=== PATIENT | male | born 1955 | race Caucasian/White ===

== ENCOUNTER 2016-08-19 09:59 | Emergency (ER) | payer OTHER ==
[~2016-08-19] VITALS: Ht 182.9 cm; Wt 90.7 kg
[2016-08-19] MEDS ORDERED: ASPI1TAB PO (10:10)
[2016-08-19] MEDS ORDERED: METF500T PO (10:10)
[2016-08-19] MEDS ORDERED: RAMI5CA PO (10:10)
[2016-08-19] MEDS ORDERED: SIMV40TA2 PO (10:10)
[2016-08-19] MEDS ORDERED: GLIM2TAB PO (10:10)
[2016-08-19] MEDS ORDERED: INSULANT SUBQ (10:10)
[2016-08-19] MEDS ORDERED: NOVOINJ3 (10:10)
[2016-08-19] MEDS ORDERED: MORPHINE 4 MG/ML 1ML SYRINGE IV ONE (11:15)
[2016-08-19] MEDS ORDERED: ONDANSETRON 4MG/2ML VIAL (J2405) IV ONE (11:15)
[2016-08-19] MEDS ORDERED: NS 500 ML IV ONE (11:15)
[2016-08-19 11:39] LABS: BASO % 0.2 % (0.0-1.0); EOS # 0.1 K/mm3 (0.0-0.50); EOS % 0.6 % (0.0-3.0); LARGE UNSTAINED CELL # 0.1 K/mm3 (0.0-0.4); LARGE UNSTAINED CELL % 0.4 % (0.0-4.0); LYMPH # 1.2 K/mm3 (1.5-4.5); LYMPH % 8.5 % (24.0-44.0); MEAN CORPUSCULAR HEMOGLOBIN 30.8 pg (27.0-33.0); MEAN CORPUSCULAR HGB CONC 32.9 g/dl (32.0-36.5); MEAN CORPUSCULAR VOLUME 93.4 fl (80.0-96.0); MONO # 0.5 K/mm3 (0.0-0.8); MONO % 3.6 % (0.0-5.0); NEUTROPHILS # 12.4 K/mm3 (1.8-7.7); NEUTROPHILS % 86.6 % (36.0-66.0); PLATELET COUNT, AUTOMATED 314 k/mm3 (150-450); RED CELL DISTRIBUTION WIDTH 13.9 % (11.5-14.5); WHITE BLOOD COUNT 14.3 K/mm3 (4.0-10.0)
[2016-08-19 11:57] LABS: ALBUMIN 3.6 GM/DL (3.2-5.2); ALBUMIN/GLOBULIN RATIO 0.9 (1.00-1.93); BILIRUBIN,TOTAL 0.4 MG/DL (0.2-1.0); CALCIUM LEVEL 8.6 MG/DL (8.8-10.2); CREATININE FOR GFR 1.42 MG/DL (0.70-1.30); GLOMERULAR FILTRATION RATE 54.1 (>49); POTASSIUM SERUM 4.4 MEQ/L (3.5-5.1); TOTAL PROTEIN 7.6 GM/DL (6.4-8.2)
[2016-08-19] MEDS ORDERED: BACTRIM 160MG/800MG DS TAB PO ONE (13:00)
[2016-08-19] MEDS ORDERED: TAMSULOSIN 0.4 MG CAP PO ONE (13:00)
[2016-08-19] MEDS ORDERED: FLOM5CAP PO (13:01)
[2016-08-19] MEDS ORDERED: BACT800T5 PO (13:01)
[2016-08-19] MEDS ORDERED: ZOFR4TAB3 PO (13:01)
[2016-08-19] MEDS ORDERED: PERC5TAB6 PO (13:01)
[2016-08-19 13:08] VITALS: BP 149/92
--- NOTE | 2016-08-20 07:24 | REP ---
CT ABDOMEN: HISTORY: Left flank pain. COMPARISON: None. FINDINGS: The lung bases are clear. Limited evaluation of the solid intraabdominal organs and gallbladder show no gross abnormalities. Limited evaluation of the pancreas, adrenal glands, and right kidney show no gross abnormalities. There is mild left-sided hydronephrosis secondary to a proximal 5 mm sized ureterolith. There are no urinary bladder calcifications. There is no free fluid or free air in the abdomen or pelvis. There is no evidence of an intraabdominal or intrapelvic mass or adenopathy. The intrapelvic and intraabdominal bowel loops and their mesenteries are unremarkable. The appendix is well visualized and is normal. The osseous structures are within normal limits for the patient's age. IMPRESSION: Proximal left ureterolith with resultant findings as described above. Signed by Jacky Pedraza DO 08/20/2016 09:54 A
== END 2016-08-19 13:24 | disposition home or self-care (01) ==
LOC: M ED 11:10
DX: N20.1 Calculus of ureter (principal); E11.9 Type 2 diabetes mellitus without complications; E78.00 Pure hypercholesterolemia, unspecified; Z79.899 Other long term (current) drug therapy; Z79.84 Long term (current) use of oral hypoglycemic drugs; Z79.4 Long term (current) use of insulin; F17.210 Nicotine dependence, cigarettes, uncomplicated
CPT/HCPCS: 74176; 80053; 81001; 82150; 83690; 85025; 87086; 96374; 96375; 99282; J2405